=== PATIENT | male | born 1990 | race Two or more races ===

== ENCOUNTER → 2020-12-12 | Outpatient (CLI) | payer OTHER ==
--- NOTE | 2020-12-12 15:12 | KCIC ---
MRI study of the left elbow without contrast Clinical indications: Patient fell 4 months ago. Left elbow pain tree down into the forearm. COMPARISON: Radiographic study of the left elbow dated September 18, 2020 performed at [facility]. Healing proximal left radial head fracture was seen at that time. TECHNIQUE: Noncontrast MRI sequences of the left elbow were performed in all 3 planes with T1 weighti ng and T2 weighting and STIR sequences. FINDINGS: There is a nondisplaced comminuted fracture of the proximal left radius. A fracture line is seen extending from the medial aspect of the proximal radial head through the medial metaphysis. The re is intra-articular extension but no articular surface offset is seen here. Another fracture line i s seen extending obliquely through the radial head to the lateral articular surface. No articular [place] face offset is seen here. There is a depressed central fracture fragment as a result. It is depressed along the anterior aspect but not depressed along the posterior aspect. The anterior aspect is depre ssed by 2 mm. This fracture is not yet completely healed.. Stress reaction bone marrow edema of the o lecranon and distal humeral epiphysis specifically the capitellum and trochlea is seen. Small left el bow joint effusion is seen. No loose body is evident. The triceps tendon and brachialis tendon and bi ceps tendon are intact. No olecranon bursitis is seen. The ulnar collateral ligament and lateral ulna r collateral ligament and radial collateral ligament and annular ligament are intact. There is mild t endinosis of the common flexor tendon mechanism without complete rupture. The common extensor tendon mechanism is unremarkable. IMPRESSION: Nonhealed comminuted fracture of the proximal left radius. Small left elbow joint effusio n. Stress reaction bone marrow edema of the olecranon and distal humerus. Electronically signed by: Claudio Peña MD (12/12/2020 3:09 PM) [id number]
== END ==
LOC: KCIC MRI 10:02
PROVIDERS: ATTEND Physician Assistant
DX: M25.422 Effusion, left elbow (principal); M25.522 Pain in left elbow
CPT/HCPCS: 73221